=== PATIENT | female | born 1940 | race Caucasian/White ===

== ENCOUNTER 2024-09-14 21:13 | Emergency (ER) | payer MEDICARE, SELFPAY ==
[2024-09-14 21:24] VITALS: BP 166/100; PULSE 84; RESP 16; TEMP 36.8; O2SAT 94; BMI 23.0
[2024-09-14] MEDS: ONDANSETRON 2 MG/ML inj 4 MG IVP (22:41)
[2024-09-14] MEDS: 0.9 % SODIUM CHLORIDE 1000 ml 1,000 ML IV (22:41)
[2024-09-14] MEDS: LOPERAMIDE HCL 2 MG CAPSULE 4 MG PO (22:44)
[2024-09-14 22:48] LABS: Creatinine, Point-of-Care* 1.2 mg/dl (0.6-1.3)
[2024-09-14 22:50] VITALS: PULSE 78; O2SAT 96
[2024-09-14 22:55] LABS: Lactate* 2.3 mmol/L (0.5-1.9)
[2024-09-14 23:00] VITALS: PULSE 80; O2SAT 94
[2024-09-14 23:01] LABS: Basophils Absolute Auto 0.03 K/uL (0.00-0.30); Basophils Percent Auto 0.3 % (0.0-3.0); Eosinophils Absolute Auto 0.03 K/uL (0.00-0.50); Eosinophils Percent Auto 0.3 % (0.0-7.0); Hematocrit 38.8 % (33.0-51.0); Immature Granulocytes Abs Auto 0.11 K/uL (0.00-0.30); Lymphocytes Percent Auto 15.2 % (20-44); Mean Corpuscular HGB Conc 34 gm/dL (32-36); Mean Corpuscular Hemoglobin 31 pg (26-34); Mean Corpuscular Volume 93 fL (80-100); Neutrophils Percent Auto 75.2 % (42.0-72.0); Platelet Count* 210 K/uL (140-440); RDW Coefficient of Variation % 12.6 % (11.5-15.5); Red Blood Count 4.19 m/uL (4.00-5.20); White Blood Count* 10.97 K/uL (4.50-11.00)
[2024-09-14 23:02] LABS: Slide Review Reflex No
[2024-09-14 23:12] LABS: Chloride* 103 mmol/L (96-114)
[2024-09-14 23:13] LABS: Albumin* 4.1 g/dL (3.3-5.0); Potassium* 4.2 mmol/L (3.6-5.1); Sodium* 138 mmol/L (135-149)
[2024-09-14 23:15] LABS: Alanine Aminotransferase* 22 U/L (4-35); Anion Gap 8 mEq/L (7-15); Aspartate Amino Transferase* 28 U/L (12-35); Blood Urea Nitrogen* 19 mg/dL (7-30); Carbon Dioxide* 27 mmol/L (20-32); Creatinine* 1.1 mg/dL (0.5-1.5); Est. Creatinine Clearance* 41.21; Estimated Glomerular Filt Rate 50 ml/min
[2024-09-14 23:16] LABS: Alkaline Phosphatase* 74 U/L (40-150); Bilirubin Total* 0.6 mg/dL (0.1-1.5); Calcium* 9.4 mg/dL (8.4-10.6); Glucose* 113 mg/dL (60-115); Total Protein* 7.4 g/dL (6.0-8.3)
--- NOTE | 2024-09-14 23:23 | CRLHL7_ITS ---
For Patients: As a result of the Century Cures Act, medical imaging exams and procedure reports are released immediately into your electronic medical record. You may view this report before your referring provider. If you have questions, please contact your health care provider. INDICATION: Abdominal pain, diarrhea. TECHNIQUE: CT abdomen and pelvis without contrast. COMPARISON: None. FINDINGS: Lower chest: Unremarkable. Liver: Normal in size and attenuation. No suspicious masses. Gallbladder and bile ducts: No stones or inflammation. No biliary dilatation. Pancreas: Unremarkable. No mass or inflammation. Spleen: Normal in size. No masses. Adrenal glands: Normal in size. No nodules. Kidneys: Normal in size. Small right parapelvic cyst. No suspicious masses, stones, or hydronephrosis. GI tract: Unremarkable. Normal in caliber. No sign of mass or inflammation. No evidence for appendicitis. Vasculature: Normal caliber abdominal aorta with mild atherosclerotic calcification. Lymph nodes: No lymphadenopathy. Peritoneum/Abdominal Wall: Unremarkable. No free air or significant free fluid. Pelvis: Unremarkable. No pelvic masses. Bones: Unremarkable for age. IMPRESSION: No acute findings within the abdomen or pelvis. Please note that all CT scans at this facility use dose modulation, iterative reconstruction, and/or weight-based dosing when appropriate to reduce radiation dose to as low as reasonably achievable. Dictated by Merrick Nick MD @ 09/15/2024 12:17:11 AM (Electronically Signed)
--- NOTE | 2024-09-15 00:23 | ED.GENADULT ---
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 The patient's symptoms and exam could be consistent with a viral GI infection. There is no high fever, severe pain, bilious or bloody emesis, blood or mucous in the stool, severe abdominal pain, or other concerning signs for a bacterial infection. No recent travel or high risk exposure for baceraial pathogen. No recent antibiotics or risk factors for C. diff. given age and some abdominal tenderness we did do abdomen CT which is fortunately normal. I don't see any evidence for appendicitis, bowel obstruction, abscess, colitis, diverticulitis, bowel perforation, or other surgical emergency. Labs show no concerning electrolyte disturbance or renal failure. After meds given the patient is feeling better. At this point, the patient is non-septic appearing and well hydrated.I think the patient can be managed as an outpatient. We have discussed oral rehydration strategies. They understand and can perform the needed interventions at home. I have provided a prescription for antiemetics to facilitate oral hydration (Zofran 0 DT.) Also Imodium to use p.r.n... We have discussed the signs and symptoms of worsening dehydration. They understand the need for immediate reevaluation if any of these symptoms occur. They are also directed to obtain close outpatient follow up within 1-2 days. Related Data Previous Rx's ?Medication ?Instructions ?Recorded loperamide 2 mg capsule 2 mg PO Q6H PRN loose stool #7 caps 09/15/24 ondansetron HCl 4 mg tablet 4 mg PO Q8H PRN nausea and 09/15/24 vomiting #10 tabs Allergies Allergy/AdvReac Type Severity Reaction Status Date / Time erythromycin base AdvReac Unknown Verified 09/14/24 21:30 ezetimibe (From Zetia) AdvReac Unknown Verified 09/14/24 21:30 Influenza Virus Vaccines AdvReac Unknown Verified 09/14/24 21:30 metronidazole (From Flagyl) AdvReac Unknown Verified 09/14/24 21:30 Ibalkqm-[id number] Reductase AdvReac Unknown Verified 09/14/24 21:30 Inhibitor Exam Const: Vital Signs, click to edit/add: Vital Signs - 24 hr 09/14/24 21:24 09/14/24 22:50 09/14/24 23:00 Temperature 98.2 F Pulse Rate 78 80 Pulse Rate [Pulse Oximeter] 84 Respiratory Rate 16 Blood Pressure [Ri ght Upper Arm] 166/100 H Pulse Oximetry 94 96 94 Oxygen Delivery Me thod Room Air 09/15/24 00:54 Temperature Pulse Rate Pulse Rate [Pulse Oximeter] 76 Respiratory Rate 16 Blood Pressure [Ri ght Upper Arm] 148/89 H Pulse Oximetry 97 Oxygen Delivery Me thod Room Air Course Vital Signs Vital signs: Initial Vital Signs Temperature 98.2 F 09/14/24 21:24 Temperature Source Temporal Artery Scan 09/14/24 21:24 Pulse Rate 84 09/14/24 21:24 Respiratory Rate 16 09/14/24 21:24 Blood Pressure 166/100 H 09/14/24 21:24 Blood Pressure Mean 122 H 09/14/24 21:24 Blood Pressure Position Sitting 09/14/24 21:24 Pulse Oximetry 94 09/14/24 21:24 Oxygen Delivery Method Room Air 09/14/24 21:24 Vital Signs Temperature 98.2 F 09/14/24 21:24 Pulse Rate 84 09/14/24 21:24 Respiratory Rate 16 09/14/24 21:24 Blood Pressure 166/100 H 09/14/24 21:24 Pulse Oximetry 94 09/14/24 21:24 Oxygen Delivery Method Room Air 09/14/24 21:24 Temperature 98.2 F 09/14/24 21:24 Pulse Rate 76 09/15/24 00:54 Respiratory Rate 16 09/15/24 00:54 Blood Pressure 148/89 H 09/15/24 00:54 Pulse Oximetry 97 09/15/24 00:54 Oxygen Delivery Method Room Air 09/15/24 00:54 Medications Administered Medications: Generic Name Dose Route Start Last Admin Trade Name Freq PRN Reason Stop Dose Admin Loperamide HCl 4 mg 09/14/24 22:31 09/14/24 22:44 Loperamide Hcl 2 Mg Capsule PO 4 mg ONCE PRN Administration Discontinued Medications Generic Name Dose Route Start Last Admin Trade Name Freq PRN Reason Stop Dose Admin Sodium Chloride 1,000 mls @ 1,000 mls/hr 09/14/24 22:45 09/15/24 00:31 0.9 % Sodium Chloride 1000 Ml IV 09/14/24 23:44 Infused .Q1H LAWANDA Infusion Ondansetron HCl 4 mg 09/14/24 22:31 09/14/24 22:41 Ondansetron 2 Mg/Ml Inj IVP 09/14/24 22:32 4 mg ONCE ONE Administration Medical Decision Making Lab Data Labs: Lab Results 09/14/24 Range/Units 22:45 WBC 10.97 (4.50-11.00) K/uL RBC 4.19 (4.00-5.20) m/uL Hgb 13.0 (12.0-16.0) gm/dL Hct 38.8 (33.0-51.0) % MCV 93 (80-100) fL MCH 31 (26-34) pg MCHC 34 (32-36) gm/dL RDW Coeff of Elayne 12.6 (11.5-15.5) % Plt Count 210 (140-440) K/uL Neut % (Auto) 75.2 H (42.0-72.0) % Lymph % (Auto) 15.2 L (20-44) % [place] % (Auto) 8.0 (0.0-11.0) % Eos % (Auto) 0.3 (0.0-7.0) % Baso % (Auto) 0.3 (0.0-3.0) % Neut # (Auto) 8.20 H (1.7-7.0) K/uL Lymph # (Auto) 1.70 (0.90-2.90) K/uL [place] # (Auto) 0.90 (0.00-0.90) K/UL Eos # (Auto) 0.03 (0.00-0.50) K/uL Baso # (Auto) 0.03 (0.00-0.30) K/uL Abs Immat Gran (auto) 0.11 (0.00-0.30) K/uL Imm/Tot Granulo (auto) 1.0 % Sodium 138 (135-149) mmol/L Potassium 4.2 (3.6-5.1) mmol/L Chloride 103 (96-114) mmol/L Carbon Dioxide 27 (20-32) mmol/L Anion Gap 8 (7-15) mEq/L BUN 19 (7-30) mg/dL Creatinine 1.1 (0.5-1.5) mg/dL Estimated Creat Clear 41.21 Estimated GFR 50 ml/min Glucose 113 (60-115) mg/dL Lactate 2.3 H (0.5-1.9) mmol/L Calcium 9.4 (8.4-10.6) mg/dL Total Bilirubin 0.6 (0.1-1.5) mg/dL AST 28 (12-35) U/L ALT 22 (4-35) U/L Alkaline Phosphatase 74 (40-150) U/L Total Protein 7.4 (6.0-8.3) g/dL Albumin 4.1 (3.3-5.0) g/dL POC Creatinine 1.2 (0.6-1.3) mg/dl Imaging Data CT scan - abdomen: Attestation: I have reviewed the pertinent imaging results. Radiologist's impression: IMPRESSION: No acute findings within the abdomen or pelvis. Discharge Plan Discharge Clinical Impression: Abdominal pain, vomiting, and diarrhea Patient Disposition: Home, Self-Care Condition: Stable Instructions: Acute Nausea and Vomiting (DC), Acute Diarrhea (ED), Abdominal Pain (ED) Additional Instructions: So far your workup looks good. No signs of serious infections on your CT or your blood work. Right now we suspect that your symptoms are probable be being caused by a viral infection. This should get better over the next 24 hours. While your feeling ill you can use Zofran for nausea and Imodium as needed to help treat diarrhea. As we discussed, if your symptoms are not resolved within 24 hours or if you have any worsening symptoms such as high fever, bloody vomit or bloody stool, or worsening pain, you should come back to the ER to be rechecked. Prescriptions: New ondansetron HCl 4 mg tablet 4 mg PO Q8H PRN (Reason: nausea and vomiting) Qty: 10 0RF loperamide 2 mg capsule 2 mg PO Q6H PRN (Reason: loose stool) Qty: 7 0RF Follow Up/Referrals: Provider,Not a Local [Primary Care Provider, Family Practice] Stand Alone Forms: [facility] Info Instructions
[2024-09-15 00:54] VITALS: BP 148/89; PULSE 76; RESP 16; O2SAT 97
== END 2024-09-15 01:00 | disposition home or self-care (01) ==
PROVIDERS: Emergency Provider Emergency Medicine
DX: R10.9 Unspecified abdominal pain (principal); R19.7 Diarrhea, unspecified; R11.10 Vomiting, unspecified
CPT/HCPCS: 36415; 74176; 80053; 82565; 83605; 85025; 96361; 96374; 99283; 99284; A9270; J2405; J7030